=== PATIENT | female | born 1955 | race Caucasian/White ===

== ENCOUNTER → 2017-11-01 | Outpatient (CLI) | payer BC ==
[~2017-11-01] MED LIST: CA C1TAB10; CA C1TAB6 PO; CHOL10005 PO; FA/V1CAP3; NO MEDS; OMEG-23 PO; VIT1CAPS33 PO; VITA-257 PO
--- NOTE | 2017-11-05 08:53 | RADIOLOGY IMAGING REPORT ---
FACILITY: [facility] PATIENT NAME: KATE BULLARD : [id number] MR: [id number] V: [id number] EXAM DATE: [id number] ORDERING PHYSICIAN: SHERMAN BONILLA TECHNOLOGIST: Jennifer Graham PROCEDURE:BILATERAL DIGITAL SCREENING MAMMOGRAM WITH CAD ASSISTED INTERPRETATION & 3D TOMOSYNTHESIS COMPARISON:Prior mammograms 10/04/16, 08/31/15, 08/05/14, 02/11/14. INDICATIONS:SCREENING FINDINGS: Moderately heterogeneous fibroglandular tissue is seen throughout the breasts. The parenchymal pattern has remained stable allowing for difference in mammographic technique & patient positioning. Area of post surgical scaring in the upper outer quadrant of the Right breast from prior lumpectomy again noted. There is no evidence of malignant appearing mass, malignant appearing calcifications or other secondary sign of malignancy in either breast. DIAGNOSTIC CATEGORY 2--BENIGN FINDING. RECOMMENDATIONS: ROUTINE MAMMOGRAM AND CLINICAL EVALUATION. IMPRESSION: BIRADS 2: Benign finding. No significant abnormality is seen. Dictated by: La Chiang M.D. on 11/01/2017 at 14:44 Transcribed by: SMITA on 11/05/2017 at 8:24 Approved by: La Chiang M.D. on 11/05/2017 at 8:52 [facility]
== END ==
LOC: MAMO 01:17
PROVIDERS: ATTEND Nurse Practitioner Psychiatric/Mental Health
DX: Z12.31 Encounter for screening mammogram for malignant neoplasm of breast (principal)
CPT/HCPCS: 77063; 77067

== ENCOUNTER → 2018-11-08 | Outpatient (CLI) | payer BC, MEDICARE ==
[~2018-11-08] MED LIST changes: +OCUVITE SOFTGE1 EACH PO; -VIT1CAPS33 PO
--- NOTE | 2018-11-11 13:48 | RADIOLOGY IMAGING REPORT ---
FACILITY: [facility] - [place] PATIENT NAME: KATE BULLARD : [id number] MR: [id number] V: [id number] EXAM DATE: [id number] ORDERING PHYSICIAN: SHERMAN BONILLA TECHNOLOGIST: Jennifer Graham PROCEDURE: BILATERAL DIGITAL SCREENING MAMMOGRAM WITH CAD ASSISTED INTERPRETATION & 3D TOMOSYNTHESIS REASON FOR STUDY: Screening. COMPARISON: 11/01/2017. VIEWS OBTAINED: 2D & 3D full field CC & MLO. BREAST DENSITY: Scattered fibroglandular tissue elements. MAMMOGRAM FINDINGS: There are postoperative changes with architectural distortion and attraction in the upper outer quadrant of the Right breast, stable. There is no suspicious mass, calcification, or architectural distortion. IMPRESSION: BIRADS 2: Benign finding. DIAGNOSTIC CATEGORY 2--BENIGN FINDING. RECOMMENDATIONS: ROUTINE MAMMOGRAM AND CLINICAL EVALUATION. Dictated by: Miguel Tripathi M.D. on 11/11/2018 at 8:40 Transcribed by: SMITA on 11/11/2018 at 9:42 Approved by: Miguel Tripathi M.D. on 11/11/2018 at 13:46 [facility]
== END ==
LOC: MAMO 01:39
PROVIDERS: ATTEND Nurse Practitioner Psychiatric/Mental Health
DX: Z12.31 Encounter for screening mammogram for malignant neoplasm of breast (principal)
CPT/HCPCS: 77063; 77067